=== PATIENT | female | born 1940 | race Caucasian/White ===

== ENCOUNTER → 2017-12-22 | Outpatient (CLI) | payer OTHER ==
[~2017-12-22] MED LIST: ALEN70 PO; Buspirone HCl7.5 MG; DONE5; Pravastatin Sod20 MG PO; TEMA30 PO
[2017-12-22 13:29] LABS: Bilirubin, Urine Neg (Neg); Blood, Urine Neg (Neg); Glucose Qualitative, Urine Neg (Neg); Ketones, Urine Neg (Neg); Leukocyte Esterase, Urine 1+ (Neg); Nitrite, Urine Neg (Neg); Protein, Urine Neg (Neg); Urobilinogen, Urine NORM (Normal)
[2017-12-22 13:38] LABS: Appearance, Urine Clear (Clear); Color, Urine Pale Yellow (P-Yellow)
[2017-12-22 13:39] LABS: Bacteria Few /hpf; Red Blood Cells, Urine 0-2 /hpf (0-2); Squamous Epithelial Cells Few /hpf (Few); White Blood Cells, Urine 0-2 /hpf (0-5)
== END | disposition home or self-care (01) ==
LOC: LAB 13:19 → LAB SHORT 13:19
PROVIDERS: Physician Assistant
DX: N39.0 Urinary tract infection, site not specified (principal)
CPT/HCPCS: 81001; 87086

== ENCOUNTER → 2018-01-01 | Outpatient (CLI) | payer OTHER ==
[2018-01-02 08:14] LABS: Source, Urine Clean Catch
[2018-01-02 08:35] LABS: Bilirubin, Urine Neg (Neg); Blood, Urine Neg (Neg); Glucose Qualitative, Urine Neg (Neg); Ketones, Urine Neg (Neg); Leukocyte Esterase, Urine Neg (Neg); Nitrite, Urine Neg (Neg); Protein, Urine Neg (Neg); Specific Gravity, Urine 1.015 (1.003-1.022); Urobilinogen, Urine NORM (Normal)
[2018-01-02 08:39] LABS: Appearance, Urine Clear (Clear)
[2018-01-02 08:43] LABS: Color, Urine Yellow (P-Yellow)
== END | disposition home or self-care (01) ==
LOC: LAB 18:40 → LAB SHORT 18:40
PROVIDERS: Physician Assistant
DX: N39.0 Urinary tract infection, site not specified (principal)
CPT/HCPCS: 81003

== ENCOUNTER → 2018-03-09 | Outpatient (CLI) | payer OTHER ==
[2018-03-09 15:50] LABS: Source, Urine Catheter
[2018-03-09 16:03] LABS: Appearance, Urine Clear (Clear); Bilirubin, Urine Neg (Neg); Blood, Urine Neg (Neg); Color, Urine Yellow (P-Yellow); Glucose Qualitative, Urine Neg (Neg); Ketones, Urine Neg (Neg); Leukocyte Esterase, Urine 3+ (Neg); Nitrite, Urine Neg (Neg); Protein, Urine Neg (Neg); Urobilinogen, Urine NORM (Normal)
[2018-03-09 16:17] LABS: Bacteria Few /hpf; Red Blood Cells, Urine 0-2 /hpf (0-2); Squamous Epithelial Cells Few /hpf (Few)
== END ==
LOC: LAB 15:49 → LAB SHORT 15:49
PROVIDERS: Internal Medicine
DX: N39.0 Urinary tract infection, site not specified (principal)
CPT/HCPCS: 81001; 87086

== ENCOUNTER → 2018-03-14 | Outpatient (CLI) | payer OTHER ==
[2018-03-14 15:08] LABS: Appearance, Urine Clear (Clear); Bilirubin, Urine Neg (Neg); Blood, Urine Neg (Neg); Color, Urine Yellow (P-Yellow); Glucose Qualitative, Urine Neg (Neg); Ketones, Urine Neg (Neg); Leukocyte Esterase, Urine 3+ (Neg); Nitrite, Urine Neg (Neg); Protein, Urine Neg (Neg); Specific Gravity, Urine 1.015 (1.003-1.022); Urobilinogen, Urine NORM (Normal); pH, Urine 6.5 (5.0-8.0)
[2018-03-14 15:21] LABS: Bacteria Few /hpf; Red Blood Cells, Urine 0-2 /hpf (0-2); Squamous Epithelial Cells Few /hpf (Few)
== END | disposition home or self-care (01) ==
LOC: LAB 12:15 → LAB SHORT 12:15
PROVIDERS: Internal Medicine
DX: N39.0 Urinary tract infection, site not specified (principal)
CPT/HCPCS: 81001; 87086

== ENCOUNTER → 2018-05-24 | Outpatient (CLI) | payer OTHER ==
[2018-05-24 14:47] LABS: Source, Urine Clean Catch
[2018-05-24 15:15] LABS: Appearance, Urine Clear (Clear); Bilirubin, Urine Neg (Neg); Blood, Urine Neg (Neg); Color, Urine Yellow (P-Yellow); Glucose Qualitative, Urine Neg (Neg); Ketones, Urine Neg (Neg); Leukocyte Esterase, Urine 1+ (Neg); Nitrite, Urine Neg (Neg); Protein, Urine Neg (Neg); Specific Gravity, Urine 1.015 (1.003-1.022); Urobilinogen, Urine NORM (Normal)
[2018-05-24 15:40] LABS: Bacteria Rare /hpf; Red Blood Cells, Urine 0-2 /hpf (0-2); Squamous Epithelial Cells Rare /hpf (Few); White Blood Cells, Urine 0-2 /hpf (0-5)
== END | disposition home or self-care (01) ==
LOC: LAB 12:45 → LAB SHORT 12:45
PROVIDERS: Internal Medicine
DX: N39.0 Urinary tract infection, site not specified (principal)
CPT/HCPCS: 81001; 87086

== ENCOUNTER → 2018-07-04 | Outpatient (CLI) | payer OTHER ==
[2018-07-05 10:12] LABS: Bilirubin, Urine Neg (Neg); Blood, Urine 5+ (Neg); Glucose Qualitative, Urine Neg (Neg); Ketones, Urine Neg (Neg); Leukocyte Esterase, Urine 3+ (Neg); Nitrite, Urine Pos (Neg); Protein, Urine 3+ (Neg); Specific Gravity, Urine 1.025 (1.003-1.022); Urobilinogen, Urine NORM (Normal)
[2018-07-05 10:22] LABS: Appearance, Urine Hazy (Clear); Color, Urine Yellow (P-Yellow)
[2018-07-05 10:24] LABS: Squamous Epithelial Cells Few /hpf (Few)
[2018-07-05 10:26] LABS: Bacteria Few /hpf; Red Blood Cells, Urine 25-50 /hpf (0-2); White Blood Cells, Urine TNTC /hpf (0-5)
[2018-07-05 10:28] LABS: Calcium Oxalate Crystals Mod /hpf
== END ==
LOC: LAB 20:00 → LAB SHORT 20:00
PROVIDERS: Internal Medicine
DX: N39.0 Urinary tract infection, site not specified (principal)
CPT/HCPCS: 81001; 87086

== ENCOUNTER → 2018-09-18 | Outpatient (CLI) | payer OTHER ==
[2018-09-19 13:00] LABS: Appearance, Urine Clear (Clear); Bilirubin, Urine Neg (Neg); Blood, Urine Neg (Neg); Color, Urine Yellow (P-Yellow); Glucose Qualitative, Urine Neg (Neg); Ketones, Urine Neg (Neg); Leukocyte Esterase, Urine Neg (Neg); Nitrite, Urine Neg (Neg); Protein, Urine Neg (Neg); Urobilinogen, Urine NORM (Normal)
== END ==
LOC: LAB SHORT 17:20 → LAB 17:20
PROVIDERS: Internal Medicine
DX: N39.0 Urinary tract infection, site not specified (principal)
CPT/HCPCS: 81003

== ENCOUNTER → 2018-12-18 | Outpatient (CLI) | payer OTHER ==
[2018-12-18 14:39] LABS: Bilirubin, Urine Neg (Neg); Blood, Urine Neg (Neg); Glucose Qualitative, Urine Neg (Neg); Ketones, Urine Neg (Neg); Leukocyte Esterase, Urine 3+ (Neg); Nitrite, Urine Neg (Neg); Protein, Urine 1+ (Neg); Urobilinogen, Urine NORM (Normal)
[2018-12-18 15:08] LABS: Appearance, Urine Hazy (Clear); Color, Urine Yellow (P-Yellow)
[2018-12-18 15:10] LABS: Amorphous Light ({null, 0-Heavy}); Bacteria Few /hpf; Mucus Light ({null, 0-Heavy}); Red Blood Cells, Urine Rare /hpf (0-2); Squamous Epithelial Cells Few /hpf (Few); Transitional Epithelial Cells Few /hpf ({null, 0-Rare})
== END | disposition home or self-care (01) ==
LOC: LAB 14:10 → LAB SHORT 14:10
PROVIDERS: Internal Medicine
DX: N39.0 Urinary tract infection, site not specified (principal)
CPT/HCPCS: 81001; 87086

== ENCOUNTER → 2019-04-24 | Outpatient (CLI) | payer OTHER ==
[~2019-04-24] MED LIST changes: +ACET500 PO; +DOCU100 PO; -DONE5; +DONEPEZIL HCL10 MG PO; +LORA.5 PO; +MELATONIN5 M1 PO; +MIRALAX17 GM PO; +QUET100 PO; +QUET25 PO; +SENNA-S LAXATI1 EACH PO
[2019-04-24 09:50] LABS: Source, Urine Clean Catch
[2019-04-24 10:04] LABS: Bilirubin, Urine Neg (Neg); Blood, Urine Neg (Neg); Glucose Qualitative, Urine Neg (Neg); Ketones, Urine Neg (Neg); Leukocyte Esterase, Urine 1+ (Neg); Nitrite, Urine Neg (Neg); Protein, Urine Neg (Neg); Urobilinogen, Urine NORM (Normal)
[2019-04-24 10:13] LABS: Appearance, Urine Hazy (Clear); Color, Urine Yellow (P-Yellow)
[2019-04-24 10:14] LABS: Red Blood Cells, Urine Not Seen /hpf (0-2)
[2019-04-24 10:15] LABS: Bacteria Few /hpf; Squamous Epithelial Cells Few /hpf (Few)
== END | disposition home or self-care (01) ==
LOC: LAB SHORT 09:49 → LAB 09:49
PROVIDERS: Internal Medicine
DX: N39.0 Urinary tract infection, site not specified (principal)
CPT/HCPCS: 81001; 87086

== ENCOUNTER 2019-05-23 11:13 | Emergency (ER) | payer OTHER ==
[~2019-05-23] VITALS: Ht 167.6 cm; Wt 61.2 kg
[~2019-05-23 11:13] MED LIST changes: -ACET500 PO; -DOCU100 PO; -LORA.5 PO; -MELATONIN5 M1 PO; -MIRALAX17 GM PO; -QUET100 PO; -QUET25 PO; -SENNA-S LAXATI1 EACH PO
[2019-05-23] MEDS ORDERED: DOCU100 PO (11:26)
[2019-05-23] MEDS ORDERED: MELATONIN5 M1 PO (11:27)
[2019-05-23] MEDS ORDERED: QUET100 PO (11:28)
[2019-05-23] MEDS ORDERED: MIRALAX17 GM PO (11:28)
[2019-05-23] MEDS ORDERED: QUET25 PO (11:29)
[2019-05-23] MEDS ORDERED: SENNA-S LAXATI1 EACH PO (11:30)
[2019-05-23] MEDS ORDERED: ACET500 PO (11:31)
[2019-05-23] MEDS ORDERED: LORA.5 PO (11:32)
== END 2019-05-23 15:12 | disposition home or self-care (01) ==
LOC: ER 11:13
DX: M54.5 Low back pain (principal); Z88.5 Allergy status to narcotic agent; Z88.8 Allergy status to other drugs, medicaments and biological substances; Z79.899 Other long term (current) drug therapy; Z87.891 Personal history of nicotine dependence; M53.3 Sacrococcygeal disorders, not elsewhere classified; W18.30XA Fall on same level, unspecified, initial encounter
CPT/HCPCS: 72100; 72170; 99283-25